=== PATIENT | female | born 1960 | race Two or more races ===

== ENCOUNTER 2017-06-19 14:28 | Emergency (ER) | payer OTHER ==
[~2017-06-19] VITALS: Ht 165.1 cm; Wt 99.8 kg
[2017-06-19 15:54] VITALS: BP 142/80
== END 2017-06-19 16:53 | disposition home or self-care (01) ==
LOC: ER 14:28 → EDBD 14:28 → ER 16:53
DX: S40.011A Contusion of right shoulder, initial encounter (principal); V43.62XA Car passenger injured in collision with other type car in traffic accident, initial encounter; Y93.89 Activity, other specified; Y92.89 Other specified places as the place of occurrence of the external cause; Y99.8 Other external cause status
CPT/HCPCS: 73000; 73030